=== PATIENT | female | born 1980 | race African-American/Black ===

== ENCOUNTER 2021-01-13 21:03 | Emergency (ER) | payer OTHER ==
[~2021-01-13] VITALS: Ht 177.8 cm; Wt 86.2 kg
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
[2021-01-13] MEDS ORDERED: KETOROLAC TROMETHAMINE INJ 60 MG/2 ML VIAL IM ONE (23:50)
--- NOTE | 2021-01-13 23:50 | NUR ---
PER ER MD, VERBAL ORDER FOR 60MG IM TORADOL.
[2021-01-13] MEDS ORDERED: KETO10TA2 PO (23:51)
--- NOTE | 2021-01-13 23:56 | NUR ---
PT REFUSED TORADOL IM, STATED SHE WANTS 600MG IBUPROFEN.
[2021-01-13] MEDS ORDERED: IBUPROFEN 600 MG TABLET ONE (23:58)
[2021-01-14] MEDS ORDERED: IBUPROFEN 600 MG TABLET PO ONE
[2021-01-14] MEDS ORDERED: OXYMETAZOLINE HCL NASAL SPRAY 30 ML BOTTLE NS ONE ×2 (00:15→00:30)
--- NOTE | 2021-01-14 00:40 | NUR ---
Patient discharged to home in stable condition. Written and verbal after care instructions given. Patient verbalizes understanding of instruction. Pt ambulated out of ED. VSS.
[2021-01-14 00:42] VITALS: BP 139/81
== END 2021-01-14 00:43 | disposition home or self-care (01) ==
LOC: ER 21:05
DX: R04.0 Epistaxis (principal); R51.9 Headache, unspecified; Z98.890 Other specified postprocedural states; Z90.89 Acquired absence of other organs; Z60.2 Problems related to living alone; V49.49XA Driver injured in collision with other motor vehicles in traffic accident, initial encounter; Y93.89 Activity, other specified; Y92.413 State road as the place of occurrence of the external cause; Y99.8 Other external cause status
CPT/HCPCS: 70450-TC; 70486-TC; J1885